=== PATIENT | male | born 1965 | race Caucasian/White ===

== ENCOUNTER 2025-02-27 14:09 | Inpatient (IN) | payer OTHER, SELFPAY ==
[2025-02-27] VITALS (7 sets, daily range): BP systolic 85–112; BP diastolic 55–76; BMI 29.8; BMI 28.8
--- NOTE | 2025-02-27 11:59 | ED.GENMED ---
History of Present Illness
General
Chief Complaint: Seizure
Source: patient and spouse
Exam Limitations: none
Time Seen by Provider: 02/27/25 11:41
History of Present Illness
History of Present Illness:
59-year-old male presents after a seizure at [facility]. Visiting from [place]. [place] fine this morning. Apparently felt lightheaded in the store. Started having tonic activity while standing. Family lowered him to the ground.
cannot feel a pulse. 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 Patient complaining of some mild vague abdominal discomfort although he had recent hernia surgery. Some mild headache. No other chest pain shortness of breath abdominal pain blood or black
stools or any other complaints.
Past History
Past History
ED Past Medical History: HTN, Hypercholesterolemia, NIDDM and Psychiatric
ED Past Surgical History: Orthopedic and Other (Hernia repair. Eye surgery.)
Phy Exam
Physical Exam
Physical Exam:
GENERAL: Alert and oriented in no apparent distress. No scalp trauma
EYE: Orbits normal.
NECK: Supple, no significant adenopathy.
ENT: Pharynx without erythema. Tongue contusion/abrasion
CARDIAC: Regular rate and rhythm without any obvious murmurs.
LUNGS: Clear breath sounds,normal
ABDOMEN: Soft, mild nonlocalizing tenderness. No rebound or guarding no mass or hernia.
NEUROLOGICAL: Alert and oriented , grossly non-focal
SKIN: Warm and dry, no rash or lesion, no discoloration, skin intact.
MUSCULOSKELETAL: No edema,no deformity.Good color
PSYCH: Normal and appropriate interaction.
Course
Orders/Labs/Results
Orders:
Orders
02/27/25 11:41
CT Head W/o Iv Contrast Urgent
Comment:
Reason For Exam: New onset seizure
Cardiac Monitoring- Treatment ONCE
IV Insert/Care/Rem.- Treatment PRN
0.9% Sodium Chloride 1000 ml [Nss] 1,000 ml IV BOLUS
Pulse Ox/cont/shift [RESP] Stat
Quantity: 1
02/27/25 11:42
Electrocardiogram (*1) Stat
Reason for Study: Other
Other Reason for Exam: neuro symptoms
EKG- Treatment ONCE
02/27/25 11:56
IV Insert/Care/Rem.- Treatment PRN
02/27/25 11:57
CT Pe/abd/pel W Urgent
Reason For Exam: Hypotension/seizure/CPR
02/27/25 12:05
Type+Screen Urgent
Complete Blood Count/With Diff Urgent
Comprehensive Metabolic Panel Urgent
Lipase Urgent
02/27/25 12:07
Troponin I Urgent
02/27/25 13:41
Acetaminophen [Tylenol] 650 mg PO NOW STA
02/27/25 13:44
Admit/Transfer Patient As Directed
Co-Sign Provider:
Level of Care: Inpatient admission
Assign to:: Telemetry
Physician / Group: hospitalist
Diagnosis: seizure
Reason for Telemetry: Syncope
Date to Stop Telemetry: 03/01/25
Time to Stop Telemetry: 11:00
Reason for Hospitalization: seizure
Expected length of stay greater than two midnights?: Yes
ELOS- Estimated Length of Stay in days: 3
I certify the patient meets the requirements for IP care: Yes
PRN Pain Medication Management As Directed
May give lesser potent ordered pain med per pt: Yes
preference::
Protocol:: Medication orders for pain may be administered in a
manner that supports deferring to patient preference
when the pt is:
- Requesting an ordered lesser potent pain medication.
Least to most potent pain medications are defined
as: acetaminophen < NSAID < tramadol < opioids
(morphine, oxycodone, hydromorphone).
- Requesting a lesser dose of the same medication IF
ORDERED.
- Requesting a less intrusive route of administration
if both routes are prescribed by the provider (PO <
IV).
02/27/25 13:46
Code Status As Directed
Resuscitation Status: Full Code
02/27/25 14:08
PRN Pain Medication Management As Directed
May give lesser potent ordered pain med per pt: Yes
preference::
Protocol:: Medication orders for pain may be administered in a
manner that supports deferring to patient preference
when the pt is:
- Requesting an ordered lesser potent pain medication.
Least to most potent pain medications are defined
as: acetaminophen < NSAID < tramadol < opioids
(morphine, oxycodone, hydromorphone).
- Requesting a lesser dose of the same medication IF
ORDERED.
- Requesting a less intrusive route of administration
if both routes are prescribed by the provider (PO <
IV).
03/01/25 11:00
DC Protocol for Telemetry ONCE
Abnormal Lab Results
02/27/25
12:05
Sodium 134 L mmol/L
(135-145)
Carbon Dioxide 17 L mmol/L
(22-30)
Lipase 3141 H* U/L
(23-300)
02/27/25 12:05
02/27/25 12:05
Vital Signs
Initial and Last Documented VS:
Initial Vital Signs
Temp Pulse Resp BP Pulse Ox
98.4 F 91 17 85/55 98
02/27/25 11:35 02/27/25 11:35 02/27/25 11:35 02/27/25 11:35 02/27/25 11:35
Last Documented Vital Signs
Temp Pulse Resp BP Pulse Ox
98.4 F 92 18 97/71 98
02/27/25 11:35 02/27/25 12:00 02/27/25 12:00 02/27/25 12:00 02/27/25 12:00
*Radiology
Radiology exam reviewed: radiology read reviewed (Negative CT head negative CT chest abdomen angio.)
*Pulse Oximetry
SaO2: 98
Oxygen Mode of Delivery: Room air
Patient hypoxic: no
*EKG
Interpreted by ED Provider?: Yes
Interpretation: normal
Comparison EKG: no comparison EKG present
Heart Rate: 80
Rate: normal
Rhythm: sinus
[place]: normal axis
Interval: normal interval
QRS Pattern: normal QRS
Ischemia: no ischemia
*Brass Finisher Interpretation
Rate: normal
Interpretation: normal
Heart Rate: 84
*Critical Care Note
Total Time (30-74mins, 75-104mins- exclusive of procedures): 40
Update Note
Update Note:
1155... is here. Described more of a lightheaded near syncopal episode. He then had tonic-clonic activity. They lied him to the ground. She did not feel a pulse. She started CPR. Complaining currently of some abdominal discomfort although
had a recent hernia surgery. With persistent hypotension have to consider the seizure component of this a secondary issue. Labs ordered. Type and screen ordered. Stat CT of the chest abdomen and pelvis along with the head. I did go over to CT
to bump him as soon as possible
1212... Systolic blood pressure up to 97. Patient has remained stable. No arrhythmias.
1315... Patient has remained stable. Workup unremarkable. Blood pressure still slightly low but improved. Warrants inpatient management.
ED Attending Note
-
Portions of this chart may have been created with voice recognition software.� Occasional wrong word or��sound alike� substitutions may have occurred due to the inherent limitations of voice recognition software.
Discharge Plan
Departure
Patient Disposition: Admit
Date of Disposition: 02/27/25
Time of Disposition: 13:14
Presentation/result/management discussed w/ accepting MD/DO: Hospitalist
Discharge Problem:
Syncope, Secondary seizure, Pancreatitis
Interventions
Interventions:
*Risk Screen - Suicide Last Done: 02/27/25 11:35
*General Assessment Last Done: 02/27/25 11:35
*Neglect/Abuse Screening Last Done: 02/27/25 11:35
*ED- Fall Risk Assessment Last Done: 02/27/25 11:35
*ED COVID-19 Vaccine History Last Done: 02/27/25 11:35
*ED Influenza Vaccine History Last Done: 02/27/25 13:55
ED- Cardiac Assessment Last Done: 02/27/25 11:50
ED- Neurological Assessment Last Done: 02/27/25 11:50
ED- Pulmonary Assessment Last Done: 02/27/25 11:50
[2025-02-27] MEDS: NSS 1000 IV ×2 (12:03→17:26)
--- NOTE | 2025-02-27 12:15 | EDRN ---
Patient's at bedside. stated that the patient was shopping with her and her mother at [facility] when he suddenly developed dizziness. stated that that were walking out of the store when the patient became unresponsive and had
full body tremors. put the patient on the ground and could not feel a pulse and began CPR. stated patient became responsive in about 2 minutes. Patient was confused but knew who she was.
[2025-02-27 12:31] LABS: Hematocrit 44.2 % (39.0-52.0); Hemoglobin 14.6 g/dL (13.0-18.0); Mean Corp Hgb Conc. 33.0 g/dL (33.0-37.0); Mean Corpuscular Volume 90.4 fL (80.0-94.0); Nucleated Red Blood Cells % 0 % (-); Platelet Count 209 10^3/uL (130-400); Red Cell Dist. Width 12.7 % (11.5-14.5)
[2025-02-27 12:39] LABS: ALT (SGPT) 25 U/L (0-50); AST (SGOT) 22 U/L (17-59); Albumin 4.5 g/dl (3.5-5.0); Alkaline Phosphatase 65 U/L (38-126); Blood Urea Nitrogen 11 mg/dl (9-20); Calcium 9.6 mg/dl (8.4-10.2); Carbon Dioxide 17 mmol/L (22-30); Chloride 104 mmol/L (98-107); Estimated Creatinine Clearance 64 ml/min; Glucose 78 mg/dl (70-99); Potassium 5.0 mmol/L (3.5-5.1); Sodium 134 mmol/L (135-145); Total Protein 6.9 g/dl (6.3-8.2); eGFR > 60.00
[2025-02-27 12:50] LABS: Troponin I 0.014 ng/ml
[2025-02-27 13:13] LABS: Lipase 3141 U/L (23-300)
[2025-02-27] MEDS: TYLENOL 650 MG PO (13:49)
--- NOTE | 2025-02-27 13:51 | HPS.HSE ---
Addendum entered and electronically signed by rBian Dunne MD 02/27/25 16:30:
This is an addendum to H&P written by Deana Sanchez on 02/27/2025. �Patient seen and examined independently with resident.
59-year-old male past medical history of BPH, hypertension, hyperlipidemia, anxiety, diabetes, smoker, presenting with lightheadedness and visual changes with hazy vision at [facility] today. � noticed that he had bilateral arm stiffness
and eyes rolled up and he was brought down to the floor. �He had foaming from his mouth. �No incontinence. �Event lasting 90 seconds. � is nursing could not feel pulse and started CPR. �He had postictal confusion.
No abdominal pain.
He had headache in emergency room. �With nausea.
Drinks 1 to 2 glasses of vodka daily.
On examination he has tongue lacerations.
Labs show lipase 3000. �CT PE/abdomen pelvis shows no abnormality. �CT head unremarkable.
Patient with first seizure episode. �Patient without any alcohol withdrawal symptoms so does not seem to be clearly related to alcohol withdrawal. �Check MRI brain, EEG, neurology consulted. �IV fluids. �Patient with elevated lipase but no evidence
of pancreatitis or abdominal pain on examination. �Alcohol withdrawal protocol, thiamine and folate.
Original Note:
Family Physician
-
Family Physician: * NONE
Chief Complaint
-
Seizure
History of Present Illness
59-year-old male, current smoker, history of BPH, type 2 DM, hypertension, hyperlipidemia, anxiety presents after an episode of seizure at [facility]. Patient felt dizzy and had hazy visual changes while walking around and soon after that
the noticed that he had bilateral stiffness of UE, eyes rolled up, she brought him to the floor and symptoms continued. He also had white foam coming out of his mouth. No bowel/bladder incontinence. The event lasted for 90 seconds as stated
by the patient's . Patient had postictal confusion and came back to his baseline while in the ambulance. Patient is visiting from [place]. Patient reports of headache started in ED, increasing in intensity also feels nauseous. Denies
chest pain, shortness of breath, abdominal pain. No past history of seizures. He notes of having 2 hours of sleep last night. He drinks 1-2 glasses of vodka daily at night. He smokes 1/2 pack if cigarettes.
In the ED patient's blood pressure was low however currently his vitals are stable. Lab chemistry shows significant elevation of lipase over 3000, denies abd discomfort, GI issues. Head CT and abdominal/pelvis CT are unremarkable.
Medical History
Past Medical History
Past Medical History: Reports HTN, Hypercholesterolemia, NIDDM, Psychiatric and Other (BPH)
Past Surgical History: Reports Other (Hernia repair)
Social History
Tobacco: Smoker (Half a pack of cigarette daily)
Alcohol: Daily (1 to 2 glasses of vodka)
Personal:
Living: With Family
Employment: Employed ([place]
Family History
Family History: Not pertinent
Allergies / Home Medications
Allergies reflects when Allergies were last updated in [employer].
Home Medications with original date entered in [employer]
Allergy/Medication List:
Allergies
Allergy/AdvReac Type Severity Reaction Status Date / Time
No Known Allergies Allergy Verified 02/27/25 11:58
Home Medications
alprazolam 1 mg tablet (Xanax) 1 mg PO DAILYPRN PRN ANXIETY 02/27/25
aripiprazole 2 mg tablet 2 mg PO HS Mental Health/Anxiety 02/27/25
atenolol 25 mg tablet 25 mg PO HS Heart Disease/Condition 02/27/25
omeprazole 20 mg tablet,delayed release 20 mg PO DAILYPRN PRN GERD 02/27/25
paroxetine HCl 20 mg tablet (Paxil) 20 mg PO HS Mental Health/Anxiety 02/27/25
rosuvastatin 20 mg tablet (Crestor) 20 mg PO HS High Cholesterol 02/27/25
semaglutide 1 mg/dose (4 mg/3 mL) subcutaneous pen injector (Ozempic) 1 mg SC SA Diabetes 02/27/25
tamsulosin 0.4 mg capsule 0.4 mg PO HS Urinary Issue 02/27/25
Review of Systems
-
History Source: Patient and Family
A 12 point ROS was completed and negative except as noted: Yes
Physical Exam
Vital Signs
Vital Signs
Temp Pulse Resp BP Pulse Ox
98.4 F 92 18 97/71 98
02/27/25 11:35 02/27/25 12:00 02/27/25 12:00 02/27/25 12:00 02/27/25 12:00
Physical Exam
General: Comfortable and Conversant
HEENT: NormoCephalic, Anicteric and Other (Left lateral tongue laceration)
Respiratory: Clear
Cardiac: S1/S2 and Regular Rhythm
GI: Soft, Non Tender, Non Distended and Normal Bowel Sounds
Musculoskeletal: No Edema
Skin: Warm and Dry
Neuro: AO x 3, Nonfocal/grossly intact, Cranial Nerves Intact and No Sensory Deficits; No Slurred Speech, Facial Droop or Tremors
Hematologic/Lymphatic: No Lymphadenopathy
Psych: Calm
Laboratory Results
-
02/27/25 12:05
02/27/25 12:05
Laboratory Results
Total Bilirubin 0.6 mg/dl (0.2-1.3) 02/27/25 12:05
AST 22 U/L (17-59) 02/27/25 12:05
ALT 25 U/L (0-50) 02/27/25 12:05
Alkaline Phosphatase 65 U/L (38-126) 02/27/25 12:05
Troponin I 0.014 ng/ml 02/27/25 12:07
Lipase 3141 U/L (23-300) H* 02/27/25 12:05
Data Reviewed
-
CT Scan: Report Reviewed by me and Discussed with Physician
Lab Data: Labs Reviewed by me and Discussed with Physician
Impression/Plan
-
IMPRESSION:
Seizure
Headache
Elevated lipase
Alcohol use
Current smoker
Essential hypertension
Type 2 diabetes mellitus
Hyperlipidemia
History of BPH
Mood disorder
PLAN:
Seizure
Initial encounter
No past history of seizure
Head CT unremarkable
Check MRI of the brain to rule out mass/tumor
EEG to observe brain activity--- defer to neurology
Check TSH, B12, magnesium, CPK
Consult neurology
Headache-- new onset
Started in ED, denies visual changes
Tylenol as needed
Check brain MRI
Elevated lipase
Lipase> 3000
Does not meet the criteria for pancreatitis
Denies abdominal discomfort, vomiting.
Physical exam of the abdomen is unremarkable
Abd CT unremarkable.
Alcohol use
Daily 1 to 2 glasses of vodka
MSAS protocol, start PO thiamine and folic acid.
Monitor
Current smoker
half a pack of cigarette daily
Declines nicotine patch
Essential hypertension
Continue atenolol
Type 2 diabetes mellitus
Hold Ozempic
Insulin sliding scale
Hyperlipidemia
Hold rosuvastatin
History of BPH
Continue tamsulosin
Mood disorder
Continue aripiprazole and paroxetine
Continue home dose Xanax
Full code
Lovenox
Diabetic diet
--- NOTE | 2025-02-27 15:16 | EDCM ---
Reviewed chart and met with pt bedside in ED. Pt lives with his in [place], is here visiting his [id number].
Lives in split level home, [address], 6 steps up to level with bedroom and full bath.
Independent in ADLs, personal care and ambulation at baseline. Has cane from prior knee surgery but does not routinely use.
Confirms prescription coverage.
No hx VN or SNF.
PCP: Nica Crowell in [place], [place]
Pharmacy: [place], [place]
Anticipate discharge home, CM will continue to follow for all discharge planning needs.
--- NOTE | 2025-02-27 15:24 | CON.NEURO4 ---
Consultation - Neurology 4
-
CONSULTING PHYSICIAN: Dr. Harjeet Harrell
REFERRING PHYSICIAN: Dr. Deana Perez
DICTATED BY: Dr. Harjeet Harrell
DATE/TIME OF REQUEST: 02/27/2025
DATE/TIME OF CONSULTATION: 02/27/2025
Reason for Consultation: Seizure
ASSESSMENT AND PLAN:
The patient is a 59 years old male, who is a current smoker, with a past medical history of BPH, type 2 DM, hypertension, hyperlipidemia, anxiety, presents after an episode of seizure which was witnessed by his and his [id number], at
[facility]. Patient felt dizzy and had had visual changes while walking around, and soon after that the , who is also a nurse, noticed that he had bilateral stiffness of UE, eyes were rolled upwards, she brought him to the floor and
symptoms continued. The duration of seizure was about 2 to 3 minutes and he had a postictal state lasting about 15 minutes. He also had white foam coming out of his mouth. The patient also has a tongue bite on the left side. No bowel/bladder
incontinence. Patient had postictal confusion and came back to his baseline while in the ambulance.
. CT head does not show acute intracranial abnormality.
. MRI brain with and without contrast.
. EEG
The patient had a new onset seizure. The patient says that he has been recently very sleep deprived. Workup including MRI of the brain with and without contrast and EEG are pending. This was the first seizure that the patient has had, therefore
will hold antiepileptic medication at this time.
. Seizure precautions including no driving for 6 months and the event needs to be reported to the [employer] as per law.
I did detailed discussion with the patient and his regarding the assessment and the management plan and they verbalized understanding of our discussion.
History of Present Illness:
The patient is a 59 years old male, who is a current smoker, with a past medical history of BPH, type 2 DM, hypertension, hyperlipidemia, anxiety, presents after an episode of witnessed seizure at [facility]. Patient felt dizzy and had had
visual changes while walking around, and soon after that the , who is also a nurse, noticed that he had bilateral stiffness of UE, eyes were rolled upwards, she brought him to the floor and symptoms continued. The duration of seizure was about
2 to 3 minutes and he had a postictal state lasting about 15 minutes. He also had white foam coming out of his mouth. The patient also has a tongue bite on the left side. No bowel/bladder incontinence. Patient had postictal confusion and came
back to his baseline while in the ambulance.
Past Medical History: DM, Hypertension, hyperlipidemia and BPH.
Review of Systems:
The 10 point review systems were negative aside from as given the above history of present illness.
Neurologic Examination:
Alert and oriented x 3,
Speech is clear,
The cranial nerves II to XII grossly intact,
The motor strength is grossly 5/5 bilaterally,
Sensations are intact,
There was no limb ataxia seen.
Vital Signs and Labs
-
Vital Signs and Labs:
Vital Signs
Temp Pulse Resp BP Pulse Ox
36.9 C 77 15 110/75 98
02/27/25 11:35 02/27/25 15:00 02/27/25 15:00 02/27/25 15:00 02/27/25 12:00
Lab Results
02/27/25 12:05
02/27/25 12:05
Sodium 134 mmol/L (135-145) L 02/27/25 12:05
Potassium 5.0 mmol/L (3.5-5.1) 02/27/25 12:05
BUN 11 mg/dl (9-20) 02/27/25 12:05
Glucose 78 mg/dl (70-99) 02/27/25 12:05
Calcium 9.6 mg/dl (8.4-10.2) 02/27/25 12:05
Medications
-
Home Medications
�Medication �Instructions �Recorded
alprazolam 1 mg tablet (Xanax) 1 mg PO DAILYPRN PRN ANXIETY 02/27/25
aripiprazole 2 mg tablet 2 mg PO HS Mental Health/Anxiety 02/27/25
atenolol 25 mg tablet 25 mg PO HS Heart Disease/Condition 02/27/25
omeprazole 20 mg tablet,delayed 20 mg PO DAILYPRN PRN GERD 02/27/25
release
paroxetine HCl 20 mg tablet (Paxil) 20 mg PO HS Mental Health/Anxiety 02/27/25
rosuvastatin 20 mg tablet (Crestor) 20 mg PO HS High Cholesterol 02/27/25
semaglutide 1 mg/dose (4 mg/3 mL) 1 mg SC SA Diabetes 02/27/25
subcutaneous pen injector (Ozempic)
tamsulosin 0.4 mg capsule 0.4 mg PO HS Urinary Issue 02/27/25
--- NOTE | 2025-02-27 15:45 | PTCARENOTE ---
semiconductor lab technician alarmed, pt tachycardic, rr=741's-140's. Pt sitting in chair, anxious, otherwise asymptomatic. Blood pressure rechecked at 16:00, 115/64 hr 122. ECG ordered and obtained, displayed sinus tachycardia, HR 122, photo of ecg sent to
via tiger text. informed that HR on drafter is continuing to display HR 110's-120's.
--- NOTE | 2025-02-27 16:05 | PTCARENOTE ---
Received pt from ED via stretcher. Pt ambulated to bed independently. Family at bedside. AAOx3. project manager finance placed. Pt reports L lower back pain from pulling it recently that has been ongoing. Assessed and oriented to room. Will continue to
monitor.
[2025-02-27 16:37] LABS: Glucose - Point of Care 81 mg/dl (70-99)
[2025-02-27 17:04] LABS: TSH 1.32 uIU/ml (0.47-4.68)
[2025-02-27] MEDS: LOVENOX 40 MG SC (17:36)
[2025-02-27 18:00] LABS: Magnesium 2.6 mg/dl (1.6-2.3)
[2025-02-27 19:07] LABS: Folate 4.8 ng/ml (2.76-20); Vitamin B12 341 pg/ml (239-931)
[2025-02-27] MEDS: TENORMIN 25 MG PO (21:05)
[2025-02-27] MEDS: ABILIFY 2 MG PO (21:05)
[2025-02-27] MEDS: FLOMAX 0.4 MG PO (21:06)
[2025-02-27] MEDS: PAXIL 20 MG PO (21:06)
[2025-02-27] MEDS: XANAX 1 MG PO (21:10)
[2025-02-27 21:46] LABS: Glucose - Point of Care 81 mg/dl (70-99)
[2025-02-28 03:00] VITALS: BP 100/70
[2025-02-28 06:03] LABS: Hematocrit 40.4 % (39.0-52.0); Hemoglobin 13.7 g/dL (13.0-18.0); Mean Corp Hgb Conc. 33.9 g/dL (33.0-37.0); Mean Corpuscular Volume 88.6 fL (80.0-94.0); Nucleated Red Blood Cells % 0 % (-); Platelet Count 168 10^3/uL (130-400); Red Cell Dist. Width 12.9 % (11.5-14.5)
[2025-02-28 06:24] LABS: Blood Urea Nitrogen 10 mg/dl (9-20); Calcium 8.6 mg/dl (8.4-10.2); Carbon Dioxide 24 mmol/L (22-30); Chloride 108 mmol/L (98-107); Estimated Creatinine Clearance 68 ml/min; Glucose 90 mg/dl (70-99); Lipase 1784 U/L (23-300); Potassium 4.1 mmol/L (3.5-5.1); Sodium 133 mmol/L (135-145); eGFR > 60.00
[2025-02-28 07:36] VITALS: BP 107/61
[2025-02-28 07:55] LABS: Glucose - Point of Care 96 mg/dl (70-99)
[2025-02-28] MEDS: VITAMIN B1 100 MG PO (08:07)
[2025-02-28] MEDS: NSS 1000 IV (08:07)
[2025-02-28] MEDS: FOLVITE 1 MG PO (08:08)
[2025-02-28 09:22] LABS: Glycohemoglobin (HgbA1c) 5.4 % (4.0-5.9)
--- NOTE | 2025-02-28 09:49 | W.PN.HOSP.TC ---
Addendum entered and electronically signed by Osmar Zimmerman MD 02/28/25 11:48:
Attending�addendum:
I saw and evaluated the patient independently. I reviewed and discussed the resident�s note and agree with findings and plan as documented in the resident�s note.� patient seen and examined at bedside, denies any chest pain or shortness of breath,
no abdominal pain, no nausea, no vomiting, no diarrhea or constipation.
Admitted yesterday with seizure, seen by neurology.
MRI pending
Physical�exam:
GENERAL : Patient is awake, alert, oriented x3
HEENT: Nonicteric sclerae, PERRLA, EOMI. Oropharynx clear. Moist mucous membranes. Conjunctivae appear well perfused.
CHEST: Chest wall is nontender.
HEART: Regular rate and rhythm without murmurs.
LUNGS: Clear to auscultation bilaterally.
ABDOMEN: Soft, positive bowel sounds, nontender, no organomegaly.
RECTAL: Deferred.
MUSCLES/EXTREMITIES: No abnormal range of motion, no swelling.SKIN: No rash, no excessive bruising, petechiae, or purpura.
NEUROLOGIC: Cranial nerves II-XII intact without motor/sensory deficit.
�
Assessment/plan:
New onset seizures.
Neurology consulted.
MRI pending
Patient advised no driving until seen by neurology as outpatient
Elevated lipase.
No abdominal pain.
No CT finding of acute pancreatitis.
Trending down
Daily alcohol use.
Continue thiamine folate
CODE STATUS: Full code
DVT prophylaxis: Lovenox
Diet: DM diet
Disposition: Discharge if MRI negative
�
Total time spent on today�s encounter was 51 minutes which included time spent in counseling the patient/family regarding diagnosis and treatment plan as listed above, goals of care, and symptom management. Case was discussed with nursing staff,
specialists, and care coordinators/case management. All labs and imaging personally reviewed by me. Remainder the time spent in detailed review of previous records, lab data, imaging, and other medical provider documentation.
Original Note:
Today's Communication/Plan
-
- Brain MRI ordered
Assessment / Plan
Assessment / Plan
Patient is a 59-year-old male who presented to [facility] after experiencing a new onset of a seizure on 02/27/2025.
#Seizure, new onset
- Neurology consulted
- CT head does not show acute intercranial abnormality
- Ordered brain MRI with/without contrast
- Given this is his first seizure, neuro advises holding antiepileptic drugs at this time
- Driving restrictions: No driving until seen by neurology
#Elevated lipase
- Lipase > 3000 on admission, improving
- Patient denying any abdominal pain
- Does not meet criteria for pancreatitis
#Alcohol use
- Daily alcohol use of 1 to 2 glasses of vodka
- MSAS protocol while admitted
- Thiamine and folic acid
#Hypertension
- Atenolol
#T2DM
- Hold Ozempic
- A1c
- Sliding scale insulin
#Hyperlipidemia
- Continue statin
#BPH
- Continue tamsulosin
#Mood disorder
- Continue aripiprazole and paroxetine
- Continue home dose of Xanax
Anticipated Discharge: 24 - 48 hours
Subjective/Interval History
-
Date of Service: February 28, 2025
Patient seen at bedside this morning. Patient states that he is feeling well and back to his baseline so he would like to go home. Patient is eating his breakfast. Patient denies any headache, nausea, shortness of breath, chest pain. Patient is
from [place] and is here visiting family for the holiday.
Objective Data
-
Labs:
Laboratory Results
02/28/25
05:33
WBC 8.3
Hgb 13.7
Hct 40.4
Plt Count 168
Sodium 133 L
Potassium 4.1
Chloride 108 H
Carbon Dioxide 24
BUN 10
Creatinine 1.1
Glucose 90
Calcium 8.6
Vital Signs:
Vital Signs
Temp Pulse Resp BP Pulse Ox
97.7 F 75 14 107/61 98
02/28/25 07:36 02/28/25 07:36 02/28/25 07:36 02/28/25 07:36 02/28/25 07:36
I&O
02/27/25 02/28/25 03/01/25
06:59 06:59 06:59
Intake Total 480 / 480
Balance 480 / 480
Review of Systems
-
History Source: Patient
Constitutional: Reports No Symptoms
EENT: Reports No Symptoms Reported
Respiratory: Reports No Symptoms
Cardiac: Reports No Symptoms
Abdomen/GI: Reports No Symptoms
Genitourinary: Reports No Symptoms
Musculoskeletal: Reports No Symptoms
Skin: Reports No Symptoms
Neuro: Reports No Symptoms
Endocrine: Reports No Symptoms
Hematologic / Lymphatic: Reports No Symptoms
Allergy / Immunology: Reports No Symptoms
Physical Exam
-
General: Well Developed, Well Nourished and No Apparent Distress
HEENT: Normocephalic, Atraumatic and Moist Mucous Membranes
Respiratory: Clear to Auscultation
Cardiac: Regular Rhythm and S1/S2
GI: Soft, Nontender and Nondistended
Musculoskeletal: No Edema
Skin: Warm and Dry
Neuro: Awake, Alert and Oriented
Psych: Calm
[2025-02-28 11:15] VITALS: BP 103/67
[2025-02-28 13:08] LABS: Glucose - Point of Care 95 mg/dl (70-99)
[2025-02-28] MEDS: NSS IV (15:04)
--- NOTE | 2025-02-28 15:06 | W.DCSUMMARY ---
Addendum entered and electronically signed by Osmar Zimmerman MD 02/28/25 16:15:
Attending�addendum:
I saw and evaluated the patient independently. I reviewed and discussed the resident�s note and agree with findings and plan as documented in the resident�s note.� patient seen and examined at bedside, denies any chest pain or shortness of breath,
no abdominal pain, no nausea, no vomiting, no diarrhea or constipation.
Admitted yesterday with seizure, seen by neurology.
MRI pending
Physical�exam:
GENERAL : Patient is awake, alert, oriented x3
HEENT: Nonicteric sclerae, PERRLA, EOMI. Oropharynx clear. Moist mucous membranes. Conjunctivae appear well perfused.
CHEST: Chest wall is nontender.
HEART: Regular rate and rhythm without murmurs.
LUNGS: Clear to auscultation bilaterally.
ABDOMEN: Soft, positive bowel sounds, nontender, no organomegaly.
RECTAL: Deferred.
MUSCLES/EXTREMITIES: No abnormal range of motion, no swelling.SKIN: No rash, no excessive bruising, petechiae, or purpura.
NEUROLOGIC: Cranial nerves II-XII intact without motor/sensory deficit.
�
Assessment/plan:
New onset seizures.
Neurology consulted.
MRI negative
Patient advised no driving until seen by neurology as outpatient
Elevated lipase.
No abdominal pain.
No CT finding of acute pancreatitis.
Trending down
Daily alcohol use.
Continue thiamine folate
CODE STATUS: Full code
DVT prophylaxis: Lovenox
Diet: DM diet
Disposition: Discharge home, EEG as op.
�
Total time spent on today�s encounter was 51 minutes which included time spent in counseling the patient/family regarding diagnosis and treatment plan as listed above, goals of care, and symptom management. Case was discussed with nursing staff,
specialists, and care coordinators/case management. All labs and imaging personally reviewed by me. Remainder the time spent in detailed review of previous records, lab data, imaging, and other medical provider documentation.
Original Note:
Documented by User: Lupe Gastelum DO, Resident 02/28/25 16:06
Discharge Summary
Discharge Data
Date of Admission: 02/27/25
Date of Discharge: 02/28/25
-
Pending Results: No
Hospital Course
Primary diagnosis: Seizure
Secondary diagnosis: Hypertension, diabetes, anxiety, GERD
Hospital course:
Patient is a 59-year-old male with past medical history of type 2 diabetes, BPH, hypertension, hyperlipidemia, anxiety presenting after a seizure. Patient notes that yesterday he was walking with his and [id number] when he started to feel
dizzy and had some hazy vision changes. Patient let his know he felt strange and she helped get him to the ground before he started experiencing a seizure. Patient lost consciousness but did not hit his head. Patient's noted that
patient had bilateral stiffness of his upper extremities and white foam in his mouth. This lasted for about 2 minutes, during which patient's attempted CPR as she stated that she felt low pulse. Patient then experienced a postictal state of
confusion for about 15 minutes and returned to baseline in the ambulance. Patient did not lose bowel or bladder function during this time, but did bite the left side of his tongue.
In the ED, patient had a headache and nausea. CT head showed no acute abnormality. Neurology was consulted. Blood work was significant for a lipase of greater than 3000. Patient was started on fluids. CT abdomen pelvis showed no acute
abnormality, no PE and no sternal fracture. Given reported history of alcohol use, patient was started on MSAS protocol including thiamine and folic acid. Patient was admitted for further observation and neurologic workup.
Today, patient feels back to his baseline. Patient is denying any headache, nausea. Patient had brain MRI today which did not indicate a reason for seizure. Neurology would like to get an EEG, but patient would like to go home to [place] to
have this done. Patient plans to follow-up with a neurologist. We also discussed seizure precautions including no driving until after meeting with neurologist.
Patient will be discharged home today.
Imaging:
02/27/[address]
IMPRESSION:
No acute intracranial abnormality.
02/27/2025 CT abdomen pelvis
IMPRESSION:
No evidence of central pulmonary embolism or thoracic aortic dissection/aneurysm.
No pneumothorax, pleural effusion, sternal fracture or mediastinal shift.
No acute abnormality throughout the abdomen and pelvis.
02/28/2025 brain MRI
IMPRESSION:
1. Minimal white matter disease in the frontal lobes. Diagnostic possibilities are (1) migraine headaches or (2) minimal white matter leukoaraiosis.
2. Mild bilateral frontal lobe volume loss.
3. Moderate paranasal sinus mucosal disease.
Discharge Plan
-
Patient Disposition: Home (Routine Discharge)
Discharge Diagnosis/Procedures: Seizure
Condition: Good
Diet: No restrictions
Activity: No restrictions
Driving Restrictions: Not until seen by your Dr
Bathing Restrictions: None
Activity Restrictions/Additional Instructions:
Please follow-up with a neurologist and schedule an EEG as soon as possible.
Please follow up with your primary care physician within 4-6 weeks.
Referrals:
NONE,* [Family Provider, Internal Medicine]
Prescriptions:
Continued
rosuvastatin [Crestor] 20 mg Tablet
20 mg PO HS
alprazolam [Xanax] 1 mg Tablet
1 mg PO DAILYPRN PRN (Reason: ANXIETY)
atenolol 25 mg Tablet
25 mg PO HS
tamsulosin 0.4 mg Capsule
0.4 mg PO HS
paroxetine HCl [Paxil] 20 mg Tablet
20 mg PO HS
aripiprazole 2 mg Tablet
2 mg PO HS
omeprazole 20 mg Tablet,Delayed Release (Dr/Ec)
20 mg PO DAILYPRN PRN (Reason: GERD)
Ozempic 1 mg/dose (4 mg/3 mL) Pen Injector
1 mg SC SA
Discharge Orders:
Discharge Patient (As Directed); Ordered 02/28/25
Ordered By: Lupe Gastelum
Discharge Date and Time
Discharge Date/Time: 02/28/25 15:41
Print Language: UPPER SORBIAN

Documented by User: Osmar Zimmerman MD 02/28/25 16:15
Discharge Summary
Discharge Data
Date of Admission: 02/27/25
Date of Discharge: 02/28/25
Discharge Plan
-
Patient Disposition: Home (Routine Discharge)
Discharge Diagnosis/Procedures: Seizure
Condition: Good
Diet: No restrictions
Activity: No restrictions
Driving Restrictions: Not until seen by your Dr
Bathing Restrictions: None
Activity Restrictions/Additional Instructions:
Please follow-up with a neurologist and schedule an EEG as soon as possible.
Please follow up with your primary care physician within 4-6 weeks.
Referrals:
NONE,* [Family Provider, Internal Medicine]
Prescriptions:
Continued
rosuvastatin [Crestor] 20 mg Tablet
20 mg PO HS
alprazolam [Xanax] 1 mg Tablet
1 mg PO DAILYPRN PRN (Reason: ANXIETY)
atenolol 25 mg Tablet
25 mg PO HS
tamsulosin 0.4 mg Capsule
0.4 mg PO HS
paroxetine HCl [Paxil] 20 mg Tablet
20 mg PO HS
aripiprazole 2 mg Tablet
2 mg PO HS
omeprazole 20 mg Tablet,Delayed Release (Dr/Ec)
20 mg PO DAILYPRN PRN (Reason: GERD)
Ozempic 1 mg/dose (4 mg/3 mL) Pen Injector
1 mg SC SA
Discharge Orders:
Discharge Patient (As Directed); Ordered 02/28/25
Ordered By: Lupe Gastelum
Discharge Date and Time
Discharge Date/Time: 02/28/25 15:41
Print Language: UPPER SORBIAN
--- NOTE | 2025-02-28 15:09 | CM ---
Home today no needs.
Plan; Home no needs.
[2025-02-28 15:32] VITALS: BP 96/59
--- NOTE | 2025-02-28 15:32 | W.PN.NEURO.1 ---
Today's Communication / Plan
-
. CT head does not show acute intracranial abnormality.
. MRI brain with and without contrast does not show an acute intracranial abnormality.
. EEG
The patient had a new onset seizure. The patient says that he has been recently very sleep deprived. This was the first seizure that the patient has had, therefore will hold antiepileptic medication at this time.
TODAY, the patient is doing well. The patient did not want to wait for the EEG to be done. He was told to contact his PCP to refer him to a neurologist to get an EEG done when he goes back to his home in [place]. He will take seizure
precautions including no driving for 6 months and the seizure event needs to be reported to [facility] as per law.
I had a detailed discussion with the patient regarding assessment and the management plan, including the need for EEG as soon as possible and seizure precautions, the patient verbalized understanding of our discussion.
Subjective/Objective
Subjective Data
Date of Service: February 28, 2025
ASSESSMENT AND PLAN:
The patient is a 59 years old male, who is a current smoker, with a past medical history of BPH, type 2 DM, hypertension, hyperlipidemia, anxiety, presents after an episode of seizure which was witnessed by his and his [id number], at
[facility]. Patient felt dizzy and had had visual changes while walking around, and soon after that the , who is also a nurse, noticed that he had bilateral stiffness of UE, eyes were rolled upwards, she brought him to the floor and
symptoms continued. The duration of seizure was about 2 to 3 minutes and he had a postictal state lasting about 15 minutes. He also had white foam coming out of his mouth. The patient also has a tongue bite on the left side. No bowel/bladder
incontinence. Patient had postictal confusion and came back to his baseline while in the ambulance.
. CT head does not show acute intracranial abnormality.
. MRI brain with and without contrast does not show an acute intracranial abnormality.
. EEG
The patient had a new onset seizure. The patient says that he has been recently very sleep deprived. This was the first seizure that the patient has had, therefore will hold antiepileptic medication at this time.
TODAY, the patient is doing well. The patient did not want to wait for the EEG to be done. He was told to contact his PCP to refer him to a neurologist to get an EEG done when he goes back to his home in [place]. He will take seizure
precautions including no driving for 6 months and the seizure event needs to be reported to [facility] as per law.
I had a detailed discussion with the patient regarding assessment and the management plan including the need for EEG as soon as possible and seizure precautions, the patient verbalized understanding of her discussion.
Discussed with the primary team.
Objective Data
Vital Signs
Temp Pulse Resp BP Pulse Ox
36.5 C 79 16 103/67 97
02/28/25 07:36 02/28/25 11:15 02/28/25 11:15 02/28/25 11:15 02/28/25 11:15
Lab Results
02/28/25 05:33
02/28/25 05:33
Sodium 133 mmol/L (135-145) L 02/28/25 05:33
Potassium 4.1 mmol/L (3.5-5.1) 02/28/25 05:33
BUN 10 mg/dl (9-20) 02/28/25 05:33
Glucose 90 mg/dl (70-99) 02/28/25 05:33
Calcium 8.6 mg/dl (8.4-10.2) 02/28/25 05:33
Vitamin B12 Cancelled 02/27/25 15:35
Patient Allergies
No Known Allergies Allergy (Verified 02/27/25 11:58)
Vital Signs and Labs
-
Vital Signs and Labs:
Vital Signs
Temp Pulse Resp BP Pulse Ox
37.0 C 79 18 96/59 96
02/28/25 15:32 02/28/25 15:32 02/28/25 15:32 02/28/25 15:32 02/28/25 15:32
Lab Results
02/28/25 05:33
02/28/25 05:33
Sodium 133 mmol/L (135-145) L 02/28/25 05:33
Potassium 4.1 mmol/L (3.5-5.1) 02/28/25 05:33
BUN 10 mg/dl (9-20) 02/28/25 05:33
Glucose 90 mg/dl (70-99) 02/28/25 05:33
Calcium 8.6 mg/dl (8.4-10.2) 02/28/25 05:33
Vitamin B12 Cancelled 02/27/25 15:35
Medications
-
Active Medications
Generic Name Dose Route Start Last Admin
Trade Name Freq PRN Reason Stop Dose Admin
Acetaminophen 650 mg 02/27/25 15:35
Acetaminophen 325 Mg Tablet PO 03/27/25 15:34
Q6HPRN PRN
mild pain/ fever>100.5F
Alprazolam 1 mg 02/27/25 15:35 02/27/25 21:10
Alprazolam 1 Mg Tablet PO 03/27/25 15:34 1 mg
DAILYPRN PRN Administration
ANXIETY
Aripiprazole 2 mg 02/27/25 22:00 02/27/25 21:05
Aripiprazole 2 Mg Tablet PO 03/27/25 21:59 2 mg
HS ARISTIDES Administration
Atenolol 25 mg 02/27/25 22:00 02/27/25 21:05
Atenolol 25 Mg Tablet PO 03/27/25 21:59 25 mg
HS ARISTIDES Administration
Bisacodyl 10 mg 02/27/25 15:35
Bisacodyl 10 Mg Rectal Suppository RECTAL 03/27/25 15:34
[id number] PRN
constipation
Dextrose 12.5 grams 02/27/25 15:35
Dextrose 50% (0.5 Grams/Ml) 50 Ml Syringe IV 03/27/25 15:34
[id number] PRN
hypoglycemia
Protocol
Enoxaparin Sodium 40 mg 02/27/25 18:00 02/27/25 17:36
Enoxaparin Sodium 40 Mg/0.4 Ml Syringe SC 03/27/25 17:59 40 mg
QPM ARISTIDES Administration
Folic Acid 1 mg 02/28/25 08:00 02/28/25 08:08
Folic Acid 1 Mg Tablet PO 03/28/25 07:59 1 mg
DAILY ARISTIDES Administration
Glucagon 1 mg 02/27/25 15:35
Glucagon 1 Mg Vial IM 03/27/25 15:34
PRN PRN
hypoglycemia
Protocol
Sodium Chloride 1,000 mls @ 100 mls/hr 02/27/25 15:35 02/28/25 15:04
Nss IV Not Given
.Q10H ARISTIDES
Insulin Aspart 0 units 02/27/25 16:30 02/28/25 13:20
Insulin Aspart Low Resistance 300 Units/3 Ml Pen.Injctr SC 03/27/25 16:29 Not Given
AC ARISTIDES
Protocol
Pantoprazole Sodium 40 mg 02/27/25 15:52
Pantoprazole 40 Mg Delayed Release Tablet PO 03/27/25 15:51
DAILYPRN PRN
GERD
Paroxetine HCl 20 mg 02/27/25 22:00 02/27/25 21:06
Paroxetine 20 Mg Tablet PO 03/27/25 21:59 20 mg
HS ARISTIDES Administration
Polyethylene Glycol 17 grams 02/27/25 15:35
Polyethylene Glycol Powder 17 Grams Packet PO 03/27/25 15:34
DAILYPRN PRN
constipation
Senna/Docusate Sodium 1 tablet 02/27/25 15:35
Docusate W/Senna (Mely-Colace) Tablet PO 03/27/25 15:34
BIDPRN PRN
constipation
Sodium Chloride 0 flush 02/27/25 16:00
Sodium Chloride 0.9% (Flush) Syringe IV 03/27/25 15:59
PER PROTOCOL ARISTIDES
Tamsulosin HCl 0.4 mg 02/27/25 22:00 02/27/25 21:06
Tamsulosin 0.4 Mg Capsule PO 03/27/25 21:59 0.4 mg
HS ARISTIDES Administration
Thiamine HCl 100 mg 02/28/25 08:00 02/28/25 08:07
Thiamine 100 Mg Tablet PO 03/28/25 07:59 100 mg
DAILY ARISTIDES Administration
Home Medications
�Medication �Instructions �Recorded
alprazolam 1 mg tablet (Xanax) 1 mg PO DAILYPRN PRN ANXIETY 02/27/25
aripiprazole 2 mg tablet 2 mg PO HS Mental Health/Anxiety 02/27/25
atenolol 25 mg tablet 25 mg PO HS Heart Disease/Condition 02/27/25
omeprazole 20 mg tablet,delayed 20 mg PO DAILYPRN PRN GERD 02/27/25
release
paroxetine HCl 20 mg tablet (Paxil) 20 mg PO HS Mental Health/Anxiety 02/27/25
rosuvastatin 20 mg tablet (Crestor) 20 mg PO HS High Cholesterol 02/27/25
semaglutide 1 mg/dose (4 mg/3 mL) 1 mg SC SA Diabetes 02/27/25
subcutaneous pen injector (Ozempic)
tamsulosin 0.4 mg capsule 0.4 mg PO HS Urinary Issue 02/27/25
== END 2025-02-28 15:41 | disposition home or self-care (01) | DRG 101 ==
LOC: 3 WEST ACU 14:09
PROVIDERS: Student in an Organized Health Care Education/Training Program; ADMITTING PHYSICIAN Hospitalist; ATTENDING PHYSICIAN General Practice; CONSULT PHYSICIAN Psychiatry & Neurology Neurology; EMERGENCY PHYSICIAN Emergency Medicine
DX: R56.9 Unspecified convulsions (principal); R74.8 Abnormal levels of other serum enzymes; I10 Essential (primary) hypertension; F10.90 Alcohol use, unspecified, uncomplicated; E78.00 Pure hypercholesterolemia, unspecified; F17.210 Nicotine dependence, cigarettes, uncomplicated; E11.9 Type 2 diabetes mellitus without complications; F39 Unspecified mood [affective] disorder; N40.0 Benign prostatic hyperplasia without lower urinary tract symptoms; F41.9 Anxiety disorder, unspecified; K21.9 Gastro-esophageal reflux disease without esophagitis; S01.512A Laceration without foreign body of oral cavity, initial encounter; X58.XXXA Exposure to other specified factors, initial encounter; Z72.820 Sleep deprivation; Z79.899 Other long term (current) drug therapy
CPT/HCPCS: 70450; 70553; 71275; 74177; 80048; 80053; 82550; 82607; 82746; 82962; 83036; 83690; 83735; 84443; 84484; 85025; 86850; 86900; 86901; 93005; 96360; 99291; A9575; Q9967